=== PATIENT | female | born 1935 | race Asian ===

== ENCOUNTER 2019-09-15 08:10 | Emergency (ER) | payer BC ==
[~2019-09-15] VITALS: Ht 152.4 cm; Wt 48.5 kg
[2019-09-15 08:17] VITALS: Ht 152.4 cm; Wt 48.5 kg
[2019-09-15 10:13] VITALS: BP 147/34
== END 2019-09-15 10:13 | disposition home or self-care (01) ==
LOC: ED 08:10
DX: S09.8XXA Other specified injuries of head, initial encounter (principal); I10 Essential (primary) hypertension; E11.9 Type 2 diabetes mellitus without complications; X58.XXXA Exposure to other specified factors, initial encounter; Y93.89 Activity, other specified; Y92.89 Other specified places as the place of occurrence of the external cause; Y99.8 Other external cause status